=== PATIENT | female | born 1980 | race American Indian/Alaskan Native ===

== ENCOUNTER 2018-03-01 02:26 | Emergency (ER) | payer OTHER ==
[2018-03-01] MEDS ORDERED: Sodium Chloride 0.9% 1,000 ML IV ONE (03:14)
--- NOTE | 2018-03-01 03:19 | EDM.PDOC ---
ED HPI GENERAL MEDICAL PROBLEM - General Chief Complaint: Abdominal Pain Stated Complaint: ABD PAIN [id number] Time Seen by Provider: 03/01/18 03:05 Source of Information: Reports: Patient History Limitations: Reports: No Limitations - History of Present Illness INITIAL COMMENTS - FREE TEXT/NARRATIVE: This 37 yo female patient reports to the ED with right lower quadrant pain. The patient reports that her pain started about 4 hours prior to reporting to the ED. The patient reports her pain has been getting worse. The patient reports no previous history of abdominal pain. The patient does not know if she could possibly be . The patient reports no increased pain with urination. The patient denies any nausea/vomiting or diarrhea. The patient has not taken anything for temporary symptom relief. Onset Date: 02/28/18 Onset Time: 23:00 Duration: Constant Location: Reports: Abdomen (RLQ) Quality: Reports: Ache, Sharp, Stabbing Severity: Severe Improves with: Reports: None Worsens with: Reports: Movement Context: Reports: Other Right Lower Abdomen Pain Score (Numeric/FACES): 8 - Related Data Allergies Allergy/AdvReac Type Severity Reaction Status Date / Time No Known Allergies Allergy Verified 10/23/16 19:48 Home Meds: Home Meds Albuterol [Ventolin HFA] 1 puff INH Q6HR PRN 10/24/13 [History] Past Medical History - Past Health History Medical/Surgical History: Denies Medical/Surgical History Respiratory History: Reports: Asthma Social & Family History - Family History Family Medical History: Noncontributory - Tobacco Use Smoking Status *Q: Current Some Day Smoker Years of Tobacco use: 1 Packs/Tins Daily: 1 - Caffeine Use Caffeine Use: Reports: Tea - Recreational Drug Use Recreational Drug Use: No ED ROS GENERAL - Review of Systems Review Of Systems: ROS reveals no pertinent complaints other than HPI. ED EXAM, GI/ABD - Physical Exam Exam: See Below Exam Limited By: No Limitations General Appearance: Alert, WD/WN, Severe Distress, Obese Eyes: Bilateral: Normal Appearance, EOMI Ears: Normal External Exam, Normal Canal, Hearing Grossly Normal, Normal TMs Nose: Normal Inspection, Normal Mucosa, No Blood Throat/Mouth: Normal Inspection, Normal Lips, Normal Teeth, Normal Gums, Normal Oropharynx, Normal Voice, No Airway Compromise Head: Atraumatic, Normocephalic Neck: Normal Inspection, Supple, Non-Tender, Full Range of Motion Respiratory/Chest: No Respiratory Distress, Lungs Clear, Normal Breath Sounds, No Accessory Muscle Use, Chest Non-Tender Cardiovascular: Normal Peripheral Pulses, Regular Rate, Rhythm, No Edema, No Gallop, No JVD, No Murmur, No Rub GI/Abdominal Exam: Normal Bowel Sounds, Soft, No Organomegaly, No Distention, No Abnormal Bruit, No Mass, Pelvis Stable, Guarding, Rebound, Tender (RLQ), Other (Positive Psoas) (Female) Exam: Deferred Rectal (Female) Exam: Deferred Back Exam: Normal Inspection, Full Range of Motion, NT Extremities: Normal Inspection, Normal Range of Motion, Non-Tender, Normal Capillary Refill, No Pedal Edema Neurological: Alert, Oriented, CN II-XII Intact, Normal Cognition Psychiatric: Normal Affect, Normal Mood Skin Exam: Warm, Dry, Intact, Normal Color, No Rash Lymphatic: No Adenopathy Course - Vital Signs Last Recorded V/S: Last Vital Signs Temp 36.9 C 03/01/18 02:48 Pulse 80 03/01/18 02:48 Resp 22 H 03/01/18 02:48 BP 106/54 L 03/01/18 04:45 Pulse Ox 97 03/01/18 04:45 - Orders/Labs/Meds Orders: Active Orders 24 hr Category Date Time Status Abdomen Pelvis w Cont [CT] Urgent Exams 03/01/18 03:39 Ordered DRUG SCREEN URINE BIORAD [URCHEM] Stat Lab 03/01/18 03:12 Ordered HCG QUALITATIVE,URINE [URCHEM] Stat Lab 03/01/18 03:12 Ordered UA W/MICROSCOPIC [URIN] Stat Lab 03/01/18 03:12 Ordered Labs: Laboratory Tests 03/01/18 03/01/18 03/01/18 Range/Units 02:54 02:54 02:54 WBC (5.0-10.0) 10^3/uL RBC (4.2-5.4) 10^6/uL Hgb (12.0-16.0) g/dL Hct (37.0-47.0) % MCV (80-100) fL MCH (27.0-34.0) pg MCHC (33.0-35.0) g/dL Plt Count (150-450) 10^3/uL Neut % (Auto) (42.2-75.2) % Lymph % (Auto) (20.5-50.1) % [place] % (Auto) (2-8) % Eos % (Auto) (1.0-3.0) % Baso % (Auto) (0.0-1.0) % Sodium (135-145) mmol/L Potassium (3.6-5.0) mmol/L Chloride (101-111) mmol/L Carbon Dioxide (21.0-31.0) mmol/L Anion Gap BUN (7-18) mg/dL Creatinine (0.6-1.3) mg/dL Est Cr Clr Drug Dosing mL/min Estimated GFR (MDRD) BUN/Creatinine Ratio Glucose (74-105) mg/dL Calcium (8.4-10.2) mg/dl Total Bilirubin (0.2-1.0) mg/dL AST (10-42) IU/L ALT (10-60) IU/L Alkaline Phosphatase (42-121) IU/L Total Protein (6.7-8.2) g/dl Albumin (3.2-5.5) g/dl Globulin Albumin/Globulin Ratio Amylase (28-100) U/L Lipase (22-51) U/L Urine Color Yellow (YELLOW) Urine Appearance Clear (CLEAR) Urine pH 6.0 (5.0-9.0) Ur Specific Archie 1.025 (1.005-1.030) Urine Protein Negative (NEGATIVE) Urine Glucose (UA) Negative (NEGATIVE) Urine Ketones Negative (NEGATIVE) Urine Occult Blood Negative (NEGATIVE) Urine Nitrite Negative (NEGATIVE) Urine Bilirubin Negative (NEGATIVE) Urine Urobilinogen 0.2 (0.2-1.0) mg/dL Ur Leukocyte Esterase Negative (NEGATIVE) Urine RBC 0-5 /HPF Urine WBC 0-5 (0-5/HPF) /HPF Ur Epithelial Cells Few /HPF Urine Bacteria Occasional (0-FEW/HPF) /HPF Urine Mucus Many H /LPF Urine HCG, Qual Negative Urine Opiates Screen Negative (NEGATIVE) Ur Oxycodone Screen Negative (NEGATIVE) Urine Methadone Screen Negative (NEGATIVE) Ur Barbiturates Screen Negative (NEGATIVE) U Tricyclic Antidepress Negative (NEGATIVE) Ur Phencyclidine Scrn Negative (NEGATIVE) Ur Amphetamine Screen Negative (NEGATIVE) U Methamphetamines Scrn Negative (NEGATIVE) Urine MDMA Screen Negative (NEGATIVE) U Benzodiazepines Scrn Negative (NEGATIVE) Urine Cocaine Screen Negative (NEGATIVE) U Marijuana (THC) Screen Negative (NEGATIVE) 03/01/18 03/01/18 03/01/18 Range/Units 03:19 03:19 03:19 WBC 10.7 H (5.0-10.0) 10^3/uL RBC 4.23 (4.2-5.4) 10^6/uL Hgb 13.8 (12.0-16.0) g/dL Hct 41.4 (37.0-47.0) % MCV 97.9 (80-100) fL MCH 32.6 (27.0-34.0) pg MCHC 33.3 (33.0-35.0) g/dL Plt Count 255 (150-450) 10^3/uL Neut % (Auto) 54.2 (42.2-75.2) % Lymph % (Auto) 31.2 (20.5-50.1) % [place] % (Auto) 8.6 H (2-8) % Eos % (Auto) 5.7 H (1.0-3.0) % Baso % (Auto) 0.3 (0.0-1.0) % Sodium 137 (135-145) mmol/L Potassium 3.3 L (3.6-5.0) mmol/L Chloride 107 (101-111) mmol/L Carbon Dioxide 26.0 (21.0-31.0) mmol/L Anion Gap 7.3 BUN 11 (7-18) mg/dL Creatinine 0.6 (0.6-1.3) mg/dL Est Cr Clr Drug Dosing 108.26 mL/min Estimated GFR (MDRD) > 60 BUN/Creatinine Ratio 18.33 Glucose 128 H (74-105) mg/dL Calcium 8.8 (8.4-10.2) mg/dl Total Bilirubin 0.6 (0.2-1.0) mg/dL AST 27 (10-42) IU/L ALT 27 (10-60) IU/L Alkaline Phosphatase 78 (42-121) IU/L Total Protein 7.1 (6.7-8.2) g/dl Albumin 3.8 (3.2-5.5) g/dl Globulin 3.3 Albumin/Globulin Ratio 1.15 Amylase 37 (28-100) U/L Lipase 22 (22-51) U/L Urine Color (YELLOW) Urine Appearance (CLEAR) Urine pH (5.0-9.0) Ur Specific Archie (1.005-1.030) Urine Protein (NEGATIVE) Urine Glucose (UA) (NEGATIVE) Urine Ketones (NEGATIVE) Urine Occult Blood (NEGATIVE) Urine Nitrite (NEGATIVE) Urine Bilirubin (NEGATIVE) Urine Urobilinogen (0.2-1.0) mg/dL Ur Leukocyte Esterase (NEGATIVE) Urine RBC /HPF Urine WBC (0-5/HPF) /HPF Ur Epithelial Cells /HPF Urine Bacteria (0-FEW/HPF) /HPF Urine Mucus /LPF Urine HCG, Qual Urine Opiates Screen (NEGATIVE) Ur Oxycodone Screen (NEGATIVE) Urine Methadone Screen (NEGATIVE) Ur Barbiturates Screen (NEGATIVE) U Tricyclic Antidepress (NEGATIVE) Ur Phencyclidine Scrn (NEGATIVE) Ur Amphetamine Screen (NEGATIVE) U Methamphetamines Scrn (NEGATIVE) Urine MDMA Screen (NEGATIVE) U Benzodiazepines Scrn (NEGATIVE) Urine Cocaine Screen (NEGATIVE) U Marijuana (THC) Screen (NEGATIVE) Meds: Medications Discontinued Medications Generic Name Dose Route Start Last Admin Trade Name Freq PRN Reason Stop Dose Admin Ciprofloxacin 500 mg 03/01/18 05:26 Ciprofloxacin Hcl PO 03/01/18 05:27 ONETIME ONE Hydromorphone HCl 0.5 mg 03/01/18 03:42 03/01/18 03:46 Dilaudid IVPUSH 03/01/18 03:43 0.5 mg ONETIME ONE Administration Sodium Chloride 1,000 mls @ 999 mls/hr 03/01/18 03:14 03/01/18 03:24 Normal Saline IV 03/01/18 04:14 999 mls/hr .BOLUS ONE Administration Iopamidol 100 ml 03/01/18 03:39 Isovue-300 (61%) IVPUSH 03/01/18 03:40 ONETIME ONE Metronidazole 500 mg 03/01/18 05:26 Metronidazole PO 03/01/18 05:27 ONETIME ONE Departure - Departure Time of Disposition: 05:27 Disposition: Home, Self-Care 01 Condition: Fair Clinical Impression: Diverticulosis Qualifiers: Diverticulosis site: diverticulosis of large intestine Diverticulosis bleeding : diverticulosis without bleeding Qualified Code(s): K57.30 - Diverticulosis of large intestine without perforation or abscess without bleeding - Discharge Information Instructions: Abdominal Pain, Adult, [id number], Diverticulosis Forms: ED Department Discharge Care Plan Goals: The patient was advised of the examination, lab and CT results during the visit. The patient was given IV fluids and IV pain medications. The patient was also given an oral dose of Cipro (500 mg) and Metronidazole (500 mg) while in the ED. The patient was discharged with a script for Cipro (500 mg) #20 to take 1 by mouth 2 times per day for 10 days and Metronidazole (500 mg) #30 to take 1 by mouth 3 times per day for 10 days. If the patient has any additional symptoms or concerns, the patient should follow-up with her primary care facility or return to the emergency department. - My Orders Last 24 Hours: My Active Orders 03/01/18 03:12 DRUG SCREEN URINE BIORAD [URCHEM] Stat HCG QUALITATIVE,URINE [URCHEM] Stat UA W/MICROSCOPIC [URIN] Stat 03/01/18 03:39 Abdomen Pelvis w Cont [CT] Urgent - Assessment/Plan Last 24 Hours: My Active Orders 03/01/18 03:12 DRUG SCREEN URINE BIORAD [URCHEM] Stat HCG QUALITATIVE,URINE [URCHEM] Stat UA W/MICROSCOPIC [URIN] Stat 03/01/18 03:39 Abdomen Pelvis w Cont [CT] Urgent
[2018-03-01] MEDS ORDERED: Iopamidol 612 MG/ML 100 ML Bottle IVPUSH ONE (03:39)
[2018-03-01] MEDS ORDERED: HYDROmorphone 0.5 MG/0.5 ML Syringe IVPUSH ONE (03:42)
[2018-03-01 03:47] LABS: CHLORIDE,CL 107 mmol/L (101-111); SODIUM,NA 137 mmol/L (135-145)
[2018-03-01 05:20] VITALS: BP 106/54
[2018-03-01] MEDS ORDERED: Ciprofloxacin 500 MG Tab PO ONE (05:26)
[2018-03-01] MEDS ORDERED: metroNIDAZOLE 250 MG Tab PO ONE (05:26)
== END 2018-03-01 05:48 | disposition home or self-care (01) ==
LOC: DL.ED 02:26
DX: K57.30 Diverticulosis of large intestine without perforation or abscess without bleeding (principal); F17.210 Nicotine dependence, cigarettes, uncomplicated
CPT/HCPCS: 36415; 74177; 80053; 80305; 81001; 81025; 82150; 83690; 85025; 96361; 96374; 99284; A9270; J1170; J7030; Q9967

== ENCOUNTER 2018-07-12 05:58 | Day surgery (SDC) | payer OTHER ==
[2018-07-12] MEDS ORDERED: Midazolam 1 MG/ML 2 ML SDV IV ONE ×7 (05:59→06:33)
[2018-07-12] MEDS ORDERED: fentaNYL 100 MCG/2 ML SDV IV ONE ×3 (05:59→06:26)
[2018-07-12] MEDS ORDERED: Dextrose 5%-0.45% NaCl 1,000 ML IV SCH (06:00)
[2018-07-12] MEDS ORDERED: Sodium Chloride 0.9% 10 ML Syringe FLUSH PRN (06:00)
[2018-07-12] MEDS ORDERED: fentaNYL 100 MCG/2 ML SDV ONE (06:16)
[2018-07-12] MEDS ORDERED: Midazolam 1 MG/ML 2 ML SDV ONE (06:16)
[2018-07-12 10:50] VITALS: BP 111/67
--- NOTE | 2018-07-12 12:12 | OR ---
DATE: 07/12/2018 PROCEDURE: Total colonoscopy. INSTRUMENT USED: CF-H180 AL Olympus video colonoscope. PREMEDICATIONS: Fentanyl 100 mcg intravenous, Versed 4 mg intravenous, nasal 2 L O2 cannula. The procedure was done under pulse oximetry, BP recording, and manager cardiac cath. INDICATION: The patient with abdominal pain and rectal bleeding, unexplained and not responsive to medical measures. Colonoscopic examination is done for detection of any polypoid lesions and removal, endoscopic hemostasis therapy if needed. Initial rectal exam was unremarkable. Rigid anoscopy showed small internal hemorrhoids without bleeding from them. DESCRIPTION OF PROCEDURE: The colonoscope was passed with ease. Some scattered diverticula were noted in the distal left colon with some deformity. The scope was passed with ease up to the ileocecal area. Photographs were taken of the cecum identified by double-bulged ileocecal folds. No bleeding was noted from any of the visualized areas at the commencement of the examination. There was fecal material that had to be aspirated that compromised visualization of few areas. No stricture, no vascular ectasia. No large isolated ulcerations seen. No evidence of diffuse inflammatory bowel disease in the form of friability, contact bleeding, or ulcerations. No polyp or tumor mass identified. Probing the proximal sides of folds and flexures, using adequate distention and clearing up the stool material, withdrawal of the scope was made. Cecum to rectum time over 6 minutes. No bleeding was noted from any of the visualized areas at the completion of examination. IMPRESSION: 1. Internal hemorrhoids. 2. Diverticulosis. The patient tolerated the procedure well. [facility] /[id number]
== END 2018-07-12 09:15 | disposition home or self-care (01) ==
LOC: DL.ENDO 05:58
PROVIDERS: ATTEND Internal Medicine Gastroenterology
DX: R10.9 Unspecified abdominal pain (principal); K62.5 Hemorrhage of anus and rectum; K57.30 Diverticulosis of large intestine without perforation or abscess without bleeding; K64.8 Other hemorrhoids; R73.9 Hyperglycemia, unspecified; J30.2 Other seasonal allergic rhinitis; E66.01 Morbid (severe) obesity due to excess calories; Z68.31 Body mass index [BMI] 31.0-31.9, adult; Z91.048 Other nonmedicinal substance allergy status
CPT/HCPCS: J2250; J3010; J7042

== ENCOUNTER 2020-05-21 23:13 | Emergency (ER) | payer SELFPAY ==
[2020-05-21 23:26] VITALS: BP 122/69; PULSE 80
[2020-05-21] MEDS ORDERED: Ketorolac 30 MG/ML SDV IM ONE (23:46)
--- NOTE | 2020-05-21 23:53 | EDM.PDOC ---
ED HPI GENERAL MEDICAL PROBLEM - General Chief Complaint: Lower Extremity Injury/Pain Stated Complaint: KNEE PAIN Time Seen by Provider: 05/21/20 23:40 Source of Information: Reports: Patient History Limitations: Reports: No Limitations - History of Present Illness INITIAL COMMENTS - FREE TEXT/NARRATIVE: This 39 yo female patient reports to the ED with bilateral knee pain over the past 2 weeks. The patient reports she has not been seen in the Clinic for her symptoms and has not attempted to take any OTC medications for discomfort. The patient reports she noticed increased symptoms after playing baseball 2 weeks ago. The patient denies any recent trauma to the knees. Duration: Week(s):, Constant Location: Reports: Lower Extremity, Left, Lower Extremity, Right Quality: Reports: Ache, Dull, Throbbing Severity: Moderate Improves with: Reports: Rest Worsens with: Reports: Movement Context: Reports: Other Associated Symptoms: Reports: No Other Symptoms Treatments CORN POPPER: Denies: Acetaminophen, NSAIDS Bilateral Knee Pain Score (Numeric/FACES): 7 - Related Data Allergies Allergy/AdvReac Type Severity Reaction Status Date / Time pollen extracts Allergy Sneezing Verified 05/21/20 23:21 Home Meds: Home Meds Albuterol [Ventolin HFA] 1 puff INH Q6HR PRN 10/24/13 [History] Acetaminophen [Pain Reliever] 1,000 mg PO DAILY PRN 05/06/18 [History] Fexofenadine/Pseudoephedrine [Fexofenadine-Pse ER 60-120 Tab] 1 tab PO DAILY 05/06/18 [History] Mometasone/Formoterol [Dulera 100-5 MCG] 1 puff INH BID 05/06/18 [History] Montelukast [Singulair] 10 mg PO DAILY 07/09/18 [History] Insulin Detemir [Levemir] 35 unit SUBCUT DAILY 03/31/19 [History] Mv-Mn/Iron/FA/Herbal/Digestive [ One Tablet] 1 tab PO DAILY 03/31/19 [History] Past Medical History - Past Health History Medical/Surgical History: Denies Medical/Surgical History HEENT History: Reports: Allergic Rhinitis, Impaired Vision, Other (See Below) Other HEENT History: wears contacts Cardiovascular History: Reports: None Respiratory History: Reports: Asthma Gastrointestinal History: Reports: Cholelithiasis Genitourinary History: Reports: None SOIL SCIENTIST History: Reports: , Other (See Below) Other SOIL SCIENTIST History: delivery in 1999 Musculoskeletal History: Reports: None Neurological History: Reports: None Psychiatric History: Reports: None Endocrine/Metabolic History: Reports: Diabetes, Gestational, Obesity/BMI 30+, Other (See Below) Hematologic History: Reports: None Immunologic History: Reports: None Oncologic (Cancer) History: Reports: None Dermatologic History: Reports: Eczema - Infectious Disease History Infectious Disease History: Reports: Hepatitis non A,B,C, Other (See Below) Other Infectious Disease History: chronic hepatitis (type unknown) - Past Surgical History Head Surgeries/Procedures: Reports: None HEENT Surgical History: Reports: Tonsillectomy GI Surgical History: Reports: None Female Surgical History: Reports: None, Other (See Below) Other Female Surgeries/Procedures: IUD PLACEMENT 08/2011 Musculoskeletal Surgical History: Reports: None Social & Family History - Family History Family Medical History: Noncontributory Endocrine/Metabolic: Reports: IDDM - Tobacco Use Smoking Status *Q: Never Smoker - Caffeine Use Caffeine Use: Reports: None Caffeine Use Comment: 1 cup every other day - Recreational Drug Use Recreational Drug Use: No - Living Situation & Occupation Living situation: Reports: with Significant Other Occupation: Employed Review of Systems - Review of Systems Review Of Systems: Comprehensive ROS is negative, except as noted in HPI. ED EXAM, GENERAL - Physical Exam Exam: See Below Exam Limited By: No Limitations General Appearance: Alert, WD/WN, Mild Distress, Obese Eye Exam: Bilateral Eye: EOMI, Normal Inspection, PERRL Ears: Normal External Exam, Normal Canal, Hearing Grossly Normal, Normal TMs Nose: Normal Inspection, Normal Mucosa, No Blood Throat/Mouth: Normal Inspection, Normal Lips, Normal Teeth, Normal Gums, Normal Oropharynx, Normal Voice, No Airway Compromise Head: Atraumatic, Normocephalic Neck: Normal Inspection, Supple, Non-Tender, Full Range of Motion Respiratory/Chest: No Respiratory Distress, Lungs Clear, Normal Breath Sounds, No Accessory Muscle Use, Chest Non-Tender Cardiovascular: Normal Peripheral Pulses, Regular Rate, Rhythm, No Edema, No Gallop, No JVD, No Murmur, No Rub GI/Abdominal: Normal Bowel Sounds, Soft, Non-Tender, No Organomegaly, No Distention, No Abnormal Bruit, No Mass, Other (obese) (Female) Exam: Deferred Rectal (Female) Exam: Deferred Back Exam: Normal Inspection, Full Range of Motion, NT Extremities: Normal Range of Motion, No Pedal Edema, Normal Capillary Refill, Leg Pain (bilateral diffuse knee pain with no acute injuries) Neurological: Alert, Oriented, CN II-XII Intact, Normal Cognition, Normal Gait, Normal Reflexes, No Motor/Sensory Deficits Psychiatric: Normal Affect, Normal Mood Skin Exam: Warm, Dry, Intact, Normal Color, No Rash Lymphatic: No Adenopathy Course - Vital Signs Last Recorded V/S: Last Vital Signs Temp 36.3 C 05/21/20 23:24 Pulse 80 05/21/20 23:24 Resp 16 05/21/20 23:24 BP 122/69 05/21/20 23:24 Pulse Ox 98 05/21/20 23:24 - Orders/Labs/Meds Orders: Active Orders 24 hr Category Date Time Status Ketorolac [Toradol] Med 05/21/20 23:46 Once 30 mg IM ONETIME ONE Medication Orders Ketorolac Tromethamine (Toradol) 30 mg IM ONETIME ONE Stop: 05/21/20 23:47 Meds: Medications Generic Name Dose Route Start Last Admin Trade Name Freq PRN Reason Stop Dose Admin Ketorolac Tromethamine 30 mg 05/21/20 23:46 Toradol IM 05/21/20 23:47 ONETIME ONE Departure - Departure Time of Disposition: 23:50 Disposition: Home, Self-Care 01 Condition: Fair Clinical Impression: Chronic knee pain Qualifiers: Laterality: bilateral Qualified Code(s): M25.561 - Pain in right knee; M25.562 - Pain in left knee; G89.29 - Other chronic pain - Discharge Information *PRESCRIPTION DRUG MONITORING PROGRAM REVIEWED*: Not Applicable *COPY OF PRESCRIPTION DRUG MONITORING REPORT IN PATIENT BRITTA: Not Applicable Instructions: Chronic Knee Pain, Adult, [id number] Care Plan Goals: The patient was advised of the examination results during the visit. The patient was given an injection of Toradol while in the ED. The patient was encouraged to take over the counter medications for temporary symptom relief. The patient should visit her primary care facility for continued evaluation and further management. If the patient has any additional symptoms or concerns, the patient should either return to the emergency department or visit her primary care facility. Sepsis Event Note (ED) - Evaluation Sepsis Screening Result: No Definite Risk - Focused Exam Vital Signs: Vital Signs Temp Pulse Resp BP Pulse Ox 05/21/20 23:24 36.3 C 80 16 122/69 98 - My Orders Last 24 Hours: My Active Orders 05/21/20 23:46 Ketorolac [Toradol] 30 mg IM ONETIME ONE - Assessment/Plan Last 24 Hours: My Active Orders 05/21/20 23:46 Ketorolac [Toradol] 30 mg IM ONETIME ONE
== END 2020-05-22 00:02 | disposition home or self-care (01) ==
LOC: DL.ED 23:13
DX: G89.29 Other chronic pain (principal); M25.561 Pain in right knee; M25.562 Pain in left knee; J45.909 Unspecified asthma, uncomplicated; E66.9 Obesity, unspecified; Z68.42 Body mass index [BMI] 45.0-49.9, adult; Z91.048 Other nonmedicinal substance allergy status; Z79.899 Other long term (current) drug therapy
CPT/HCPCS: 96372; 99283; J1885

== ENCOUNTER 2020-08-27 17:12 | Emergency (ER) | payer BC, OTHER ==
[2020-08-27 17:16] VITALS: BP 105/55; PULSE 70
--- NOTE | 2020-08-27 18:24 | EDM.PDOC ---
<Ashley Jacques - Last Filed: 08/27/20 18:20> ED HPI GENERAL MEDICAL PROBLEM - General Chief Complaint: Abdominal Pain Stated Complaint: AMBULANCE Time Seen by Provider: 08/27/20 17:35 Source of Information: Reports: Patient, RN, RN Notes Reviewed History Limitations: Reports: No Limitations - History of Present Illness INITIAL COMMENTS - FREE TEXT/NARRATIVE: Patient presents to the ED via EMS for complaints of abdominal pain. The patient reports the pain began abruptly about 45 minutes ago while she was vacuuming her living room. She reports the pain originates in her right suprapubic area and radiates up into her umbilicus. She states she attempted to sit down and rest to alleviate the pain, but this did not work. She denies fever, shaking chills, nausea, vomiting, dysuria, hematuria, diarrhea, melena, or hematochezia. She states her last bowel movement was yesterday afternoon, and was normal for her. She reports her LMP was August 03, as per her normal. She has not taken any medication for this problem. Lower Abdomen Pain Score (Numeric/FACES): 10 - Related Data Allergies Allergy/AdvReac Type Severity Reaction Status Date / Time pollen extracts Allergy Sneezing Verified 08/27/20 17:19 Home Meds: Home Meds Albuterol [Ventolin HFA] 1 puff INH Q6HR PRN 10/24/13 [History] Acetaminophen [Pain Reliever] 1,000 mg PO DAILY PRN 05/06/18 [History] Fexofenadine/Pseudoephedrine [Fexofenadine-Pse ER 60-120 Tab] 1 tab PO DAILY 05/06/18 [History] Mometasone/Formoterol [Dulera 100-5 MCG] 1 puff INH BID 05/06/18 [History] Montelukast [Singulair] 10 mg PO DAILY 07/09/18 [History] Insulin Detemir [Levemir] 35 unit SUBCUT DAILY 03/31/19 [History] Mv-Mn/Iron/FA/Herbal/Digestive [ One Tablet] 1 tab PO DAILY 03/31/19 [History] Past Medical History - Past Health History Medical/Surgical History: Denies Medical/Surgical History HEENT History: Reports: Allergic Rhinitis, Impaired Vision, Other (See Below) Other HEENT History: wears contacts Cardiovascular History: Reports: None Respiratory History: Reports: Asthma Gastrointestinal History: Reports: Cholelithiasis Genitourinary History: Reports: None APPRENTICE ARCHITECT History: Reports: , Other (See Below) Other APPRENTICE ARCHITECT History: delivery in 1999 Musculoskeletal History: Reports: None Neurological History: Reports: None Psychiatric History: Reports: None Endocrine/Metabolic History: Reports: Diabetes, Gestational, Obesity/BMI 30+, Other (See Below) Hematologic History: Reports: None Immunologic History: Reports: None Oncologic (Cancer) History: Reports: None Dermatologic History: Reports: Eczema - Infectious Disease History Infectious Disease History: Reports: Hepatitis non A,B,C, Other (See Below) Other Infectious Disease History: chronic hepatitis (type unknown) - Past Surgical History Head Surgeries/Procedures: Reports: None HEENT Surgical History: Reports: Tonsillectomy GI Surgical History: Reports: None Female Surgical History: Reports: None, Other (See Below) Other Female Surgeries/Procedures: IUD PLACEMENT 08/2011 Musculoskeletal Surgical History: Reports: None Social & Family History - Family History Family Medical History: Noncontributory Endocrine/Metabolic: Reports: IDDM - Tobacco Use Tobacco Use Status *Q: Never Tobacco User - Caffeine Use Caffeine Use: Reports: None Caffeine Use Comment: 1 cup every other day - Recreational Drug Use Recreational Drug Use: No - Living Situation & Occupation Living situation: Reports: with Significant Other Occupation: Employed Departure - Departure Disposition: Home, Self-Care 01 Clinical Impression: Lower abdominal pain Cholelithiases Qualifiers: Cholelithiasis location: gallbladder Cholecystitis presence: without cholecystitis Biliary obstruction: without biliary obstruction Qualified Code(s): K80.20 - Calculus of gallbladder without cholecystitis without o bstruction - Discharge Information Instructions: Abdominal Pain, Adult, [id number] Forms: ED Department Discharge Additional Instructions: light low fat bland diet increase fluids fruit and fiber in diet clinic follow up with primary care provider to discuss referral for gall stones Sepsis Event Note (ED) - Evaluation Sepsis Screening Result: No Definite Risk <Teressa Martins - Last Filed: 08/27/20 20:05> ED ROS GENERAL - Review of Systems Review Of Systems: Comprehensive ROS is negative, except as noted in HPI. ED EXAM, GI/ABD - Physical Exam Exam: See Below Exam Limited By: No Limitations General Appearance: Alert, Obese Ears: Normal External Exam Nose: Normal Inspection Throat/Mouth: Normal Lips, Normal Voice Head: Atraumatic, Normocephalic Neck: Normal Inspection Respiratory/Chest: No Respiratory Distress, Normal Breath Sounds Cardiovascular: Regular Rate, Rhythm GI/Abdominal Exam: Soft, Non-Tender. No: Distended, Guarding, Rebound Neurological: Alert, Oriented Psychiatric: Normal Affect, Normal Mood Skin Exam: Warm, Dry, Intact, Normal Color Course - Vital Signs Last Recorded V/S: Last Vital Signs Temp 97.9 F 08/27/20 17:12 Pulse 70 08/27/20 17:12 Resp 16 08/27/20 17:12 BP 105/55 L 08/27/20 17:12 Pulse Ox 100 08/27/20 17:12 - Orders/Labs/Meds Orders: Active Orders 24 hr Category Date Time Status CULTURE BLOOD [BC] Stat Lab 08/27/20 18:02 Received Labs: Laboratory Tests 08/27/20 08/27/20 08/27/20 Range/Units 18:02 18:02 18:02 WBC 9.6 (5.0-10.0) 10^3/uL RBC 4.44 (4.2-5.4) 10^6/uL Hgb 14.3 D (12.0-16.0) g/dL Hct 42.2 (37.0-47.0) % MCV 95.0 (80-100) fL MCH 32.2 (27.0-34.0) pg MCHC 33.9 (33.0-35.0) g/dL Plt Count 229 (150-450) 10^3/uL Neut % (Auto) 78.4 H (42.2-75.2) % Lymph % (Auto) 14.5 L (20.5-50.1) % [place] % (Auto) 5.6 (2-8) % Eos % (Auto) 1.3 (1.0-3.0) % Baso % (Auto) 0.2 (0.0-1.0) % Sodium 137 (136-145) mmol/L Potassium 3.7 (3.5-5.1) mmol/L Chloride 101 (98-107) mmol/L Carbon Dioxide 27 (21-32) mmol/L Anion Gap 12.7 (7-13) mEq/L BUN 13 (7-18) mg/dL Creatinine 0.73 (0.55-1.02) mg/dL Est Cr Clr Drug Dosing TNP Estimated GFR (MDRD) > 60 BUN/Creatinine Ratio 17.8 (No establ ref range) Glucose 91 (74-99) mg/dL Lactic Acid 0.9 (0.4-2.0) mmol/L Calcium 9.2 (8.5-10.1) mg/dL Phosphorus 3.4 (2.6-4.7) mg/dL Magnesium 2.1 (1.8-2.4) mg/dL Total Bilirubin 1.1 H (0.2-1.0) mg/dL AST 23 (15-37) U/L ALT 33 (14-59) U/L Alkaline Phosphatase 69 (46-116) U/L Total Protein 7.9 (6.4-8.2) g/dL Albumin 3.6 (3.4-5.0) g/dL Globulin 4.3 Albumin/Globulin Ratio 0.8 Urine Color (YELLOW) Urine Appearance (CLEAR) Urine pH (5.0-9.0) Ur Specific [place] (1.005-1.030) Urine Protein (NEGATIVE) Urine Glucose (UA) (NEGATIVE) Urine Ketones (NEGATIVE) Urine Occult Blood (NEGATIVE) Urine Nitrite (NEGATIVE) Urine Bilirubin (NEGATIVE) Urine Urobilinogen (0.2-1.0) mg/dL Ur Leukocyte Esterase (NEGATIVE) Urine RBC /HPF Urine WBC (0-5/HPF) /HPF Ur Epithelial Cells (NOT SEEN) /HPF Amorphous Sediment (NOT SEEN) /HPF Urine Bacteria (0-FEW/HPF) /HPF Urine Mucus (NOT SEEN) /LPF Urine HCG, Qual 08/27/20 08/27/20 Range/Units 18:18 18:18 WBC (5.0-10.0) 10^3/uL RBC (4.2-5.4) 10^6/uL Hgb (12.0-16.0) g/dL Hct (37.0-47.0) % MCV (80-100) fL MCH (27.0-34.0) pg MCHC (33.0-35.0) g/dL Plt Count (150-450) 10^3/uL Neut % (Auto) (42.2-75.2) % Lymph % (Auto) (20.5-50.1) % [place] % (Auto) (2-8) % Eos % (Auto) (1.0-3.0) % Baso % (Auto) (0.0-1.0) % Sodium (136-145) mmol/L Potassium (3.5-5.1) mmol/L Chloride (98-107) mmol/L Carbon Dioxide (21-32) mmol/L Anion Gap (7-13) mEq/L BUN (7-18) mg/dL Creatinine (0.55-1.02) mg/dL Est Cr Clr Drug Dosing Estimated GFR (MDRD) BUN/Creatinine Ratio (No establ ref range) Glucose (74-99) mg/dL Lactic Acid (0.4-2.0) mmol/L Calcium (8.5-10.1) mg/dL Phosphorus (2.6-4.7) mg/dL Magnesium (1.8-2.4) mg/dL Total Bilirubin (0.2-1.0) mg/dL AST (15-37) U/L ALT (14-59) U/L Alkaline Phosphatase (46-116) U/L Total Protein (6.4-8.2) g/dL Albumin (3.4-5.0) g/dL Globulin Albumin/Globulin Ratio Urine Color Yellow (YELLOW) Urine Appearance Slightly cloudy (CLEAR) Urine pH 5.0 (5.0-9.0) Ur Specific [place] 1.015 (1.005-1.030) Urine Protein Negative (NEGATIVE) Urine Glucose (UA) Negative (NEGATIVE) Urine Ketones 40 H (NEGATIVE) Urine Occult Blood Trace-intact H (NEGATIVE) Urine Nitrite Negative (NEGATIVE) Urine Bilirubin Negative (NEGATIVE) Urine Urobilinogen 0.2 (0.2-1.0) mg/dL Ur Leukocyte Esterase Negative (NEGATIVE) Urine RBC 5-10 H /HPF Urine WBC 0-5 (0-5/HPF) /HPF Ur Epithelial Cells Few (NOT SEEN) /HPF Amorphous Sediment Few (NOT SEEN) /HPF Urine Bacteria Few (0-FEW/HPF) /HPF Urine Mucus Few H (NOT SEEN) /LPF Urine HCG, Qual Negative - Re-Assessments/Exams Free Text/Narrative Re-Assessment/Exam: 08/27/20 20:02 pain improved, results discussed with patient. Instructed to follow with PCP 08/27/20 20:02 Departure - Departure Time of Disposition: 20:00 Condition: Good - Discharge Information *PRESCRIPTION DRUG MONITORING PROGRAM REVIEWED*: No *COPY OF PRESCRIPTION DRUG MONITORING REPORT IN PATIENT BRITTA: No Sepsis Event Note (ED) - Focused Exam Vital Signs: Vital Signs Temp Pulse Resp BP Pulse Ox 08/27/20 17:12 97.9 F 70 16 105/55 L 100
[2020-08-27 18:27] LABS: ANION GAP 12.7 mEq/L (7-13); CHLORIDE,CL 101 mmol/L (98-107); SODIUM,NA 137 mmol/L (136-145)
--- NOTE | 2020-08-27 19:30 | CT ---
PROCEDURE INFORMATION: Exam: CT Abdomen And Pelvis Without Contrast Exam date and time: 08/27/2020 7:03 PM Age: 39 years old Clinical indication: Abdominal pain; Tenderness; Lower; Additional info: Suprapubic tenderness TECHNIQUE: Imaging protocol: Computed tomography of the abdomen and pelvis without contrast. Radiation optimization: All CT scans at this facility use at least one of these dose optimization techniques: automated exposure control; mA and/or kV adjustment per patient size (includes targeted exams where dose is matched to clinical indication); or iterative reconstruction. COMPARISON: CT Abdomen Pelvis w Cont 03/01/2018 3:49 AM FINDINGS: Liver: Normal. No mass. Gallbladder and bile ducts: Several calcified gallstones again noted. Pancreas: Normal. No ductal dilation. Spleen: Normal. No splenomegaly. Adrenal glands: Normal. No mass. Kidneys and ureters: Normal. No hydronephrosis. Stomach and bowel: Unremarkable. No obstruction. No mucosal thickening. Appendix: No evidence of appendicitis. Intraperitoneal space: Unremarkable. No free air. No significant fluid collection. Vasculature: Unremarkable. No abdominal aortic aneurysm. Lymph nodes: Unremarkable. No enlarged lymph nodes. Urinary bladder: Unremarkable as visualized. Reproductive: Unremarkable as visualized. Bones/joints: Unremarkable. No acute fracture. Soft tissues: Unremarkable. IMPRESSION: Cholelithiasis
== END 2020-08-27 20:04 | disposition home or self-care (01) ==
LOC: DL.ED 17:12
DX: K80.20 Calculus of gallbladder without cholecystitis without obstruction (principal); J45.909 Unspecified asthma, uncomplicated; E66.9 Obesity, unspecified; Z68.42 Body mass index [BMI] 45.0-49.9, adult; Z91.018 Allergy to other foods; Z79.4 Long term (current) use of insulin; Z79.899 Other long term (current) drug therapy
CPT/HCPCS: 36415; 74176; 80053; 81001; 81025; 83605; 83735; 84100; 85025; 87040; 99285-25

== ENCOUNTER 2020-09-11 17:39 | Emergency (ER) | payer BC, OTHER ==
[2020-09-11 17:54] VITALS: BP 122/67; PULSE 77
--- NOTE | 2020-09-11 18:22 | EDM.PDOC ---
ED HPI GENERAL MEDICAL PROBLEM - General Chief Complaint: Genitourinary Problem Stated Complaint: BLADDER INFECTION PER PT Time Seen by Provider: 09/11/20 18:10 Source of Information: Reports: Patient History Limitations: Reports: No Limitations - History of Present Illness INITIAL COMMENTS - FREE TEXT/NARRATIVE: This 39 yo female patient reports to the ED due to burning with urination and frequent urination that started at 1630 today. The patient reports having a previous UTI 3 years ago. Onset: Today Onset Date: 09/11/20 Onset Time: 14:30 Duration: Constant Location: Reports: Abdomen Quality: Reports: Burning Severity: Moderate Improves with: Reports: None Worsens with: Reports: None Context: Reports: Other Associated Symptoms: Reports: No Other Symptoms - Related Data Allergies Allergy/AdvReac Type Severity Reaction Status Date / Time pollen extracts Allergy Sneezing Verified 09/11/20 17:54 Home Meds: Home Meds Albuterol [Ventolin HFA] 1 puff INH Q6HR PRN 10/24/13 [History] Acetaminophen [Pain Reliever] 1,000 mg PO DAILY PRN 05/06/18 [History] Fexofenadine/Pseudoephedrine [Fexofenadine-Pse ER 60-120 Tab] 1 tab PO DAILY 05/06/18 [History] Mometasone/Formoterol [Dulera 100-5 MCG] 1 puff INH BID 05/06/18 [History] Montelukast [Singulair] 10 mg PO DAILY 07/09/18 [History] Insulin Detemir [Levemir] 35 unit SUBCUT DAILY 03/31/19 [History] Mv-Mn/Iron/FA/Herbal/Digestive [ One Tablet] 1 tab PO DAILY 03/31/19 [History] Past Medical History - Past Health History Medical/Surgical History: Denies Medical/Surgical History HEENT History: Reports: Allergic Rhinitis, Impaired Vision, Other (See Below) Other HEENT History: wears contacts Cardiovascular History: Reports: None Respiratory History: Reports: Asthma Gastrointestinal History: Reports: Cholelithiasis Genitourinary History: Reports: None SHRUB 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: , Other (See Below) Other SHRUB PLANTER History: delivery in 1999 Musculoskeletal History: Reports: None Neurological History: Reports: None Psychiatric History: Reports: None Endocrine/Metabolic History: Reports: Diabetes, Gestational, Obesity/BMI 30+, Other (See Below) Hematologic History: Reports: None Immunologic History: Reports: None Oncologic (Cancer) History: Reports: None Dermatologic History: Reports: Eczema - Infectious Disease History Infectious Disease History: Reports: Hepatitis non A,B,C, MRSA, Other (See Below) Other Infectious Disease History: chronic hepatitis (type unknown) - Past Surgical History Head Surgeries/Procedures: Reports: None HEENT Surgical History: Reports: Tonsillectomy GI Surgical History: Reports: None, Other (See Below) Other GI Surgeries/Procedures: gastric bypass Female Surgical History: Reports: None, Other (See Below) Other Female Surgeries/Procedures: IUD PLACEMENT 08/2011 Musculoskeletal Surgical History: Reports: None Social & Family History - Family History Family Medical History: No Pertinent Family History Endocrine/Metabolic: Reports: IDDM - Tobacco Use Tobacco Use Status *Q: Never Tobacco User Second Hand Smoke Exposure: No - Caffeine Use Caffeine Use: Reports: None Caffeine Use Comment: 1 cup every other day - Recreational Drug Use Recreational Drug Use: No - Living Situation & Occupation Living situation: Reports: with Significant Other Occupation: Employed ED ROS GENERAL - Review of Systems Review Of Systems: Comprehensive ROS is negative, except as noted in HPI. ED EXAM, RENAL/ - Physical Exam Exam: See Below Exam Limited By: No Limitations General Appearance: Alert, WD/WN, No Apparent Distress Eye Exam: Bilateral Eye: EOMI, Normal Inspection, PERRL Ears: Normal External Exam, Normal Canal, Hearing Grossly Normal, Normal TMs Nose: Normal Inspection, Normal Mucosa, No Blood Throat/Mouth: Normal Inspection, Normal Lips, Normal Teeth, Normal Gums, Normal Oropharynx, Normal Voice, No Airway Compromise Head: Atraumatic, Normocephalic Neck: Normal Inspection, Supple, Non-Tender, Full Range of Motion Respiratory/Chest: No Respiratory Distress, Lungs Clear, Normal Breath Sounds, No Accessory Muscle Use, Chest Non-Tender Cardiovascular: Normal Peripheral Pulses, Regular Rate, Rhythm, No Edema, No Gallop, No JVD, No Murmur, No Rub GI/Abdominal: Normal Bowel Sounds, Other (obese) (Female) Exam: Deferred Rectal (Female) Exam: Deferred Back Exam: Normal Inspection, Full Range of Motion, NT Extremities: Normal Inspection, Normal Range of Motion, Non-Tender, Normal Capillary Refill, No Pedal Edema Neurological: Alert, Oriented, CN II-XII Intact, Normal Cognition, Normal Gait, Normal Reflexes, No Motor/Sensory Deficits Psychiatric: Normal Affect, Normal Mood Skin Exam: Warm, Dry, Intact, Normal Color, No Rash Lymphatic: No Adenopathy Course - Vital Signs Last Recorded V/S: Last Vital Signs Temp 36.6 C 09/11/20 17:52 Pulse 77 09/11/20 17:52 Resp 18 09/11/20 17:52 BP 122/67 09/11/20 17:52 Pulse Ox 95 09/11/20 17:52 - Orders/Labs/Meds Orders: Active Orders 24 hr Category Date Time Status CULTURE URINE [RM] Stat Lab 09/11/20 17:54 Received Labs: Laboratory Tests 09/11/20 09/11/20 09/11/20 Range/Units 17:54 17:54 17:54 Urine Color Yellow (YELLOW) Urine Appearance Slightly cloudy (CLEAR) Urine pH 7.0 (5.0-9.0) Ur Specific [place] 1.025 (1.005-1.030) Urine Protein 30 H (NEGATIVE) Urine Glucose (UA) Negative (NEGATIVE) Urine Ketones >=160 H (NEGATIVE) Urine Occult Blood Trace-intact H (NEGATIVE) Urine Nitrite Negative (NEGATIVE) Urine Bilirubin Moderate H (NEGATIVE) Urine Urobilinogen >=8.0 H (0.2-1.0) mg/dL Ur Leukocyte Esterase Small H (NEGATIVE) Urine RBC 5-10 H /HPF Urine WBC >100 H (0-5/HPF) /HPF Ur Epithelial Cells Moderate H (NOT SEEN) /HPF Amorphous Sediment Few (NOT SEEN) /HPF Urine Bacteria Moderate H (0-FEW/HPF) /HPF Urine Mucus Moderate H (NOT SEEN) /LPF Urine HCG, Qual Negative Urine Opiates Screen Negative (NEGATIVE) Ur Oxycodone Screen Positive H (NEGATIVE) Urine Methadone Screen Negative (NEGATIVE) Ur Barbiturates Screen Negative (NEGATIVE) U Tricyclic Antidepress Negative (NEGATIVE) Ur Phencyclidine Scrn Negative (NEGATIVE) Ur Amphetamine Screen Negative (NEGATIVE) U Methamphetamines Scrn Negative (NEGATIVE) Urine MDMA Screen Negative (NEGATIVE) U Benzodiazepines Scrn Negative (NEGATIVE) Urine Cocaine Screen Negative (NEGATIVE) U Marijuana (THC) Screen Negative (NEGATIVE) Departure - Departure Time of Disposition: 18:20 Disposition: Home, Self-Care 01 Condition: Fair Clinical Impression: UTI, Urinary tract infectious disease - Discharge Information *PRESCRIPTION DRUG MONITORING PROGRAM REVIEWED*: Not Applicable *COPY OF PRESCRIPTION DRUG MONITORING REPORT IN PATIENT BRITTA: Not Applicable Instructions: Urinary Tract Infection, Adult, [id number] Forms: ED Department Discharge Care Plan Goals: The patient was advised of the examination and lab results during the visit. The patient was given a script for Keflex (500 mg) #15 to take 1 by mouth 3 times per day for 5 days. The patient was encouraged to increase her oral fluid intake. If the patient has any additional symptoms or concerns, the patient should either return to the emergency department or visit her primary care facility. Sepsis Event Note (ED) - Evaluation Sepsis Screening Result: No Definite Risk - Focused Exam Vital Signs: Vital Signs Temp Pulse Resp BP Pulse Ox 09/11/20 17:52 36.6 C 77 18 122/67 95 - My Orders Last 24 Hours: My Active Orders 09/11/20 17:54 CULTURE URINE [RM] Stat - Assessment/Plan Last 24 Hours: My Active Orders 09/11/20 17:54 CULTURE URINE [RM] Stat
== END 2020-09-11 18:26 | disposition home or self-care (01) ==
LOC: DL.ED 17:39
DX: N39.0 Urinary tract infection, site not specified (principal); J45.909 Unspecified asthma, uncomplicated; E66.9 Obesity, unspecified; Z68.42 Body mass index [BMI] 45.0-49.9, adult; Z91.048 Other nonmedicinal substance allergy status; Z79.899 Other long term (current) drug therapy
CPT/HCPCS: 80305-QW; 81001; 81025; 87086; 87088; 87186; 99283

== ENCOUNTER 2022-06-29 22:13 | Emergency (ER) | payer BC, OTHER ==
[2022-06-29] MEDS ORDERED: Acetaminophen/HYDROcodone 325-5 MG Tab PO ONE (22:14)
[2022-06-29 22:25] VITALS: BP 112/67; PULSE 74
[2022-06-29] MEDS ORDERED: Acetaminophen/HYDROcodone 325-5 MG Tab ONE (23:25)
== END 2022-06-29 23:34 | disposition home or self-care (01) ==
LOC: DL.ED 22:13
DX: S80.01XA Contusion of right knee, initial encounter (principal); E66.9 Obesity, unspecified; Z68.37 Body mass index [BMI] 37.0-37.9, adult; Z91.048 Other nonmedicinal substance allergy status; W21.07XA Struck by softball, initial encounter
CPT/HCPCS: 73562-RT; 99283; 99284; A9270-GY

== ENCOUNTER 2023-04-03 20:34 | Emergency (ER) | payer BC, OTHER ==
[2023-04-03] MEDS ORDERED: Acetaminophen/HYDROcodone 325-10 MG Tab PO ONE (22:02)
[2023-04-03] MEDS: Sodium Chloride 0.9% 10 ML Syringe FLUSH PRN ×3 (22:25→23:57)
[2023-04-03 22:38] LABS: BASOPHILS PERCENT AUTO 0.2 % (0.0-1.0); EOSINOPHILS PERCENT AUTO 3.1 % (1.0-3.0); LYMPHOCYTES PERCENT AUTO 25.1 % (20.5-50.1); MEAN CORPUSCULAR HEMOGLOBIN 31.3 pg (27.0-34.0); MEAN CORPUSCULAR HGB CONC 32.4 g/dL (33.0-35.0); MEAN CORPUSCULAR VOLUME 96.4 fL (80-100); MONOCYTES PERCENT AUTO 6.9 % (2-8); NEUTROPHILS PERCENT AUTO 64.7 % (42.2-75.2); PLATELET COUNT,PLT 231 10^3/uL (150-450); RED BLOOD CELL COUNT 3.84 10^6/uL (4.2-5.4); WHITE BLOOD CELL COUNT,WBC 8.1 10^3/uL (5.0-10.0)
[2023-04-03 22:46] LABS: APPEARANCE,URINE CLEAR (CLEAR); BILIRUBIN,URINE NEGATIVE (NEGATIVE); COLOR,URINE YELLOW (YELLOW); GLUCOSE,URINE NEGATIVE (NEGATIVE); KETONES,URINE NEGATIVE (NEGATIVE); LEUKOCYTE ESTERASE,URINE NEGATIVE (NEGATIVE); NITRITE,URINE NEGATIVE (NEGATIVE); OCCULT BLOOD,URINE NEGATIVE (NEGATIVE); PH,URINE 7.5 (5.0-9.0); PROTEIN,URINE NEGATIVE (NEGATIVE); UROBILINOGEN,URINE 0.2 mg/dL (0.2-1.0)
[2023-04-03 23:01] LABS: LACTIC ACID 0.6 mmol/L (0.4-2.0)
[2023-04-03 23:07] LABS: ALBUMIN 3.4 g/dL (3.4-5.0); ANION GAP 11.6 mEq/L (7-13); BILIRUBIN TOTAL 0.6 mg/dL (0.2-1.0); BUN/CREATININE RATIO 11.3 (No establ ref range); CALCIUM 8.3 mg/dL (8.5-10.1); CREATININE 0.71 mg/dL (0.55-1.02); EST CRCL DRUG DOSING (CG) 87.13 mL/min; MAGNESIUM 1.9 mg/dL (1.8-2.4); POTASSIUM,K 3.6 mmol/L (3.5-5.1); PROTEIN TOTAL,TP 6.7 g/dL (6.4-8.2)
[2023-04-03] MEDS ORDERED: Ondansetron 4 MG/2 ML SDV IVPUSH ONE (23:16)
[2023-04-03] MEDS ORDERED: Morphine 2 MG/ML SYRINGE IVPUSH ONE (23:16)
[2023-04-03] MEDS ORDERED: Iopamidol 612 MG/ML 100 ML Bottle IVPUSH ONE (23:28)
[2023-04-04 01:47] VITALS: BP 118/77; PULSE 59
== END 2023-04-04 01:59 | disposition home or self-care (01) ==
LOC: DL.ED 20:34
DX: N83.202 Unspecified ovarian cyst, left side (principal); J45.909 Unspecified asthma, uncomplicated; Z91.048 Other nonmedicinal substance allergy status
CPT/HCPCS: 36415; 74177; 80053; 81003; 81025; 83605; 83690; 83735; 85025; A9270; J2270; J2405; Q9967; 96374; 96375; 99284-25; J3490

== ENCOUNTER 2023-08-26 00:37 | Emergency (ER) | payer BC, OTHER ==
[2023-08-26 01:03] VITALS: PULSE 64
[2023-08-26] MEDS ORDERED: Ketorolac 30 MG/ML SDV IVPUSH ONE (01:03)
[2023-08-26 01:11] LABS: BASOPHILS PERCENT AUTO 0.2 % (0.0-1.0); EOSINOPHILS PERCENT AUTO 4.3 % (1.0-3.0); HEMATOCRIT 39.2 % (37.0-47.0); HEMOGLOBIN 12.8 g/dL (12.0-16.0); LYMPHOCYTES PERCENT AUTO 41.1 % (20.5-50.1); MEAN CORPUSCULAR HEMOGLOBIN 31.1 pg (27.0-34.0); MEAN CORPUSCULAR HGB CONC 32.7 g/dL (33.0-35.0); MEAN CORPUSCULAR VOLUME 95.1 fL (80-100); MONOCYTES PERCENT AUTO 8.9 % (2-8); NEUTROPHILS PERCENT AUTO 45.5 % (42.2-75.2); PLATELET COUNT,PLT 261 10^3/uL (150-450); RED BLOOD CELL COUNT 4.12 10^6/uL (4.2-5.4); WHITE BLOOD CELL COUNT,WBC 5.5 10^3/uL (5.0-10.0)
[2023-08-26 01:22] LABS: INR 0.9 (0.9-1.2); PROTHROMBIN TIME 9.4 SEC (9.0-12.0)
[2023-08-26 01:25] LABS: LACTIC ACID 0.7 mmol/L (0.4-2.0)
[2023-08-26 01:29] VITALS: BP 104/64
[2023-08-26 01:31] LABS: ALANINE AMINOTRANSFERASE,ALT 30 U/L (14-59); ALBUMIN 3.3 g/dL (3.4-5.0); ALKALINE PHOSPHATASE 75 U/L (46-116); ANION GAP 10.4 mEq/L (7-13); ASPARTATE AMNIOTRANSFERASE,AST 21 U/L (15-37); B-TYPE NATRIURETIC PEPTIDE,BNP 11 pg/ml (0-100); BILIRUBIN TOTAL 0.4 mg/dL (0.2-1.0); BLOOD UREA NITROGEN,BUN 11 mg/dL (7-18); BUN/CREATININE RATIO 15.1 (No establ ref range); CALCIUM 8.6 mg/dL (8.5-10.1); CARBON DIOXIDE,CO2 26 mmol/L (21-32); CHLORIDE,CL 109 mmol/L (98-107); CREATININE 0.73 mg/dL (0.55-1.02); EST CRCL DRUG DOSING (CG) 84.74 mL/min; GLUCOSE RANDOM 110 mg/dL (70-99); LIPASE 47 U/L (16-77); POTASSIUM,K 3.4 mmol/L (3.5-5.1); PROTEIN TOTAL,TP 7.3 g/dL (6.4-8.2); SODIUM,NA 142 mmol/L (136-145)
[2023-08-26 01:33] LABS: A/G RATIO 0.83; C-REACTIVE PROTEIN < 0.05 ng/dL (<=0.30); ESTIMATED GFR 107 mL/min (>=60); ETHANOL BLOOD MEDICAL < 3 mg/dL (0)
[2023-08-26] MEDS ORDERED: Famotidine 20 MG/2 ML SDV IVPUSH ONE (01:55)
[2023-08-26] MEDS ORDERED: Aluminum Hydroxide/Magnesium Hydroxide/Simethicone Susp 30 ML Cup PO ONE (01:55)
[2023-08-26 01:57] LABS: CORONAVIRUS COVID-19 NAA NEGATIVE (NEGATIVE); INFLUENZA A NAA NEGATIVE (NEGATIVE); INFLUENZA B NAA NEGATIVE (NEGATIVE); RESPIRATORY SYNCYTIAL VIR NAA NEGATIVE (NEGATIVE)
[2023-08-26 07:45] LABS: AMPHETAMINES,URINE NEGATIVE (NEGATIVE); BARBITURATES,URINE NEGATIVE (NEGATIVE); BENZODIAZEPINE,URINE NEGATIVE (NEGATIVE); MDMA (ECSTASY), URINE NEGATIVE (NEGATIVE); METHADONE,URINE NEGATIVE (NEGATIVE); METHAMPHETAMINES,URINE NEGATIVE (NEGATIVE); OPIATES,URINE NEGATIVE (NEGATIVE); OXYCODONE,URINE NEGATIVE (NEGATIVE); PHENCYCLIDINE,URINE NEGATIVE (NEGATIVE); TCA,URINE NEGATIVE (NEGATIVE)
[2023-08-26 07:46] LABS: APPEARANCE,URINE CLEAR (CLEAR); BILIRUBIN,URINE NEGATIVE (NEGATIVE); COLOR,URINE YELLOW (YELLOW); GLUCOSE,URINE NEGATIVE (NEGATIVE); KETONES,URINE NEGATIVE (NEGATIVE); LEUKOCYTE ESTERASE,URINE NEGATIVE (NEGATIVE); NITRITE,URINE NEGATIVE (NEGATIVE); OCCULT BLOOD,URINE MODERATE (NEGATIVE); PROTEIN,URINE 30 (NEGATIVE)
[2023-08-26 07:47] LABS: BACTERIA,URINE MODERATE /HPF (0-FEW/HPF); EPITHELIAL CELLS,URINE FEW /HPF (NOT SEEN); RBC,URINE 30-40 /HPF (0-5)
[2023-08-26 07:48] LABS: MUCUS,URINE MODERATE /LPF (NOT SEEN)
== END 2023-08-26 03:25 | disposition home or self-care (01) ==
LOC: DL.ED 00:37
DX: R07.9 Chest pain, unspecified (principal); K21.9 Gastro-esophageal reflux disease without esophagitis; Z91.048 Other nonmedicinal substance allergy status; Z90.49 Acquired absence of other specified parts of digestive tract; Z20.822 Contact with and (suspected) exposure to COVID-19
CPT/HCPCS: 0241U; 36415; 71045; 80053; 80305-QW; 80307; 81001; 83605; 83690; 83880; 84443; 84484; 85025; 85379; 85610; 85730; 86140; 93005; 93010; 96374; 96375; 99284; 99285-25; A9270-GY; J1885; J3490

== ENCOUNTER 2024-01-23 06:20 | Emergency (ER) | payer BC, OTHER ==
[2024-01-23 06:34] LABS: APPEARANCE,URINE CLOUDY (CLEAR); BILIRUBIN,URINE NEGATIVE (NEGATIVE); COLOR,URINE DARK YELLOW (YELLOW); GLUCOSE,URINE NEGATIVE (NEGATIVE); KETONES,URINE NEGATIVE (NEGATIVE); LEUKOCYTE ESTERASE,URINE MODERATE (NEGATIVE); NITRITE,URINE NEGATIVE (NEGATIVE); OCCULT BLOOD,URINE SMALL (NEGATIVE); PROTEIN,URINE 100 (NEGATIVE)
[2024-01-23 06:43] LABS: BACTERIA,URINE MANY /HPF (0-FEW/HPF); EPITHELIAL CELLS,URINE MODERATE /HPF (NOT SEEN); MUCUS,URINE FEW /LPF (NOT SEEN); WBC,URINE >100 /HPF (0-5/HPF)
[2024-01-23] MEDS: Take Home: Ciprofloxacin HCl 500 MG, 6 Tab Pack PO ONE (07:51)
[2024-01-23] MEDS: Take Home: Phenazopyridine 95 MG Tab, 4 Tab Pack PO ONE (07:51)
[2024-01-23 08:03] VITALS: BP 110/77; PULSE 65
== END 2024-01-23 07:58 | disposition home or self-care (01) ==
LOC: DL.ED 06:20
DX: N39.0 Urinary tract infection, site not specified (principal); J45.909 Unspecified asthma, uncomplicated; Z91.018 Allergy to other foods; Z79.51 Long term (current) use of inhaled steroids; Z90.49 Acquired absence of other specified parts of digestive tract
CPT/HCPCS: 81001; 87086; 87088; 87186; 99283; A9270

== ENCOUNTER 2024-07-01 00:15 | Emergency (ER) | payer BC, OTHER ==
[2024-07-01 00:38] VITALS: BP 120/74; PULSE 71
[2024-07-01] MEDS: Iopamidol 612 MG/ML 100 ML Bottle IVPUSH ONE (00:46)
[2024-07-01] MEDS: Sodium Chloride 0.9% 1,000 ML IV ONE (00:50)
[2024-07-01] MEDS: Ondansetron 4 MG/2 ML SDV IVPUSH ONE ×2 (00:52→07:22)
[2024-07-01] MEDS: Ketorolac 30 MG/ML SDV IVPUSH ONE ×2 (00:52→07:24)
[2024-07-01 00:58] LABS: BASOPHILS PERCENT AUTO 0.2 % (0.0-1.0); EOSINOPHILS PERCENT AUTO 1.6 % (1.0-3.0); HEMATOCRIT 38.1 % (37.0-47.0); LYMPHOCYTES PERCENT AUTO 13.4 % (20.5-50.1); MEAN CORPUSCULAR HEMOGLOBIN 28.6 pg (27.0-34.0); MEAN CORPUSCULAR HGB CONC 31.5 g/dL (33.0-35.0); MEAN CORPUSCULAR VOLUME 90.9 fL (80-100); NEUTROPHILS PERCENT AUTO 79.8 % (42.2-75.2); PLATELET COUNT,PLT 263 10^3/uL (150-450); RED BLOOD CELL COUNT 4.19 10^6/uL (4.2-5.4); WHITE BLOOD CELL COUNT,WBC 10.4 10^3/uL (5.0-10.0)
[2024-07-01 01:14] LABS: LACTIC ACID 1.7 mmol/L (0.4-2.0)
[2024-07-01 01:17] LABS: A/G RATIO 0.9; ALANINE AMINOTRANSFERASE,ALT 30 U/L (14-59); ALBUMIN 3.5 g/dL (3.4-5.0); ALKALINE PHOSPHATASE 71 U/L (46-116); ANION GAP 14.6 mEq/L (7-13); ASPARTATE AMNIOTRANSFERASE,AST 24 U/L (15-37); BILIRUBIN TOTAL 0.5 mg/dL (0.2-1.0); BLOOD UREA NITROGEN,BUN 8 mg/dL (7-18); BUN/CREATININE RATIO 10.4 (No establ ref range); CALCIUM 8.6 mg/dL (8.5-10.1); CARBON DIOXIDE,CO2 25 mmol/L (21-32); CHLORIDE,CL 106 mmol/L (98-107); CREATININE 0.77 mg/dL (0.55-1.02); ESTIMATED GFR 99 mL/min (>=60); ETHANOL BLOOD MEDICAL 4 mg/dL (0); GLUCOSE RANDOM 91 mg/dL (70-99); LIPASE 42 U/L (16-77); MAGNESIUM 1.7 mg/dL (1.8-2.4); POTASSIUM,K 3.6 mmol/L (3.5-5.1); PROTEIN TOTAL,TP 7.2 g/dL (6.4-8.2); SODIUM,NA 142 mmol/L (136-145)
[2024-07-01 01:37] LABS: APPEARANCE,URINE CLEAR (CLEAR); BILIRUBIN,URINE NEGATIVE (NEGATIVE); COLOR,URINE YELLOW (YELLOW); GLUCOSE,URINE NEGATIVE (NEGATIVE); KETONES,URINE 15 (NEGATIVE); LEUKOCYTE ESTERASE,URINE NEGATIVE (NEGATIVE); NITRITE,URINE NEGATIVE (NEGATIVE); OCCULT BLOOD,URINE NEGATIVE (NEGATIVE); PROTEIN,URINE NEGATIVE (NEGATIVE); UROBILINOGEN,URINE 0.2 mg/dL (0.2-1.0)
[2024-07-01] MEDS: Magnesium Sulfate/Water 2 GM in Premix Bag 1 BAG IV ONE (02:13)
[2024-07-01] MEDS: Morphine 2 MG/ML SYRINGE IVPUSH ONE ×3 (05:07→07:26)
[2024-07-01] MEDS: Piperacillin/Tazobactam 4.5 GM in Sodium Chloride 0.9% 100 ML IV ONE (05:13)
== END 2024-07-01 06:59 ==
LOC: DL.ED 00:15
DX: K35.80 Unspecified acute appendicitis (principal); E83.42 Hypomagnesemia; Z90.49 Acquired absence of other specified parts of digestive tract; Z91.048 Other nonmedicinal substance allergy status
CPT/HCPCS: 36415; 74177; 80053; 80307; 81003; 81025; 83605; 83690; 83735; 84484; 85025; 96365; 96366; 96367; 96375; 96376; 99285; J1885; J2270; J2405; J2543; J3475; J3490; J7030; Q9967